=== PATIENT | female | born 1995 | race Caucasian/White ===

== ENCOUNTER 2018-08-21 22:44 | Emergency (ER) | payer OTHER ==
[~2018-08-21] VITALS: Ht 160 cm; Wt 61.4 kg
[2018-08-21 22:47] VITALS: Ht 160 cm; Wt 61.4 kg
[2018-08-21] MEDS ORDERED: ACETAMINOPHEN 500 MG TAB PO STA (23:05)
--- NOTE | 2018-08-21 23:10 | ERD ---
ER Documentation Chief Complaint Chief Complaint vomiting/abdominal pain x 2 days, 8 weeks . denies vb HPI This is a 23-year-old female who presents here in emergency department with complaints of vomiting and pelvic pain with cramping for about 2 days. Stated that she vomited multiple times with nonbilious nonbloody emesis today. Denies vaginal bleeding. LMP: 06/26/2018. NATHAN: 04/02/2019. A0. Denies headache, head injury, loss of consciousness, dizziness, neck pain, neck stiffness, throat pain, difficulty swallowing, difficulty breathing lying flat, shoulder pain, chest pain, back pain, constipation, diarrhea, urinary symptoms, loss of bowel and bladder control, trauma, injury, falls, difficulty walking due to pain, numbness or tingling sensation, calf pain, recent travel, recent major surgery in the last 3 weeks, calf pain, recent long travel, recent exposure to any illness, recent antibiotic use in the last 3 months, fever, chills, seizures. Past medical history: Denies. Surgical history: Denies. Social: Denies smoking, use of alcoholic beverages, use of illegal drugs. ROS All systems reviewed and are negative except as per history of present illness. Medications Home Meds Active Scripts Vit No.124/Iron/FA ( Vitamin Tablet) 1 Each Tablet, 1 EACH PO DAILY, #30 TAB Prov:PASILABAN,KLAR F 08/22/18 Metoclopramide* (Reglan*) 10 Mg Tablet, 10 MG PO Q6 PRN for NAUSEA AND/OR VOMITING, #20 TAB Prov:PASILABAN,KLAR F 08/22/18 Acetaminophen* (Tylophen*) 500 Mg Capsule, 1 CAP PO Q6H PRN for PAIN AND OR ELEVATED TEMP, #20 CAP Prov:PASILABAN,KLAR F 08/22/18 Cephalexin* (Keflex*) 500 Mg Capsule, 500 MG PO TID for 7 Days, CAP Prov:PASILABAN,KLAR F 08/22/18 Allergies Allergies: Coded Allergies: No Known Drug Allergies (Verified Allergy, Unknown, 08/21/18) PMhx/Soc Medical and Surgical Hx: pt denies Surgical Hx History of Surgery: No Anesthesia Reaction: No Hx Neurological Disorder: No Hx Respiratory Disorders: No Hx Cardiac Disorders: No Hx Psychiatric Problems: No Hx Miscellaneous Medical Probl: Yes (ANEMIA, HYPOTHYROIDISM) Hx Alcohol Use: No Hx Substance Use: No Hx Tobacco Use: No Smoking Status: Never smoker Physical Exam Vitals Physical Exam Const: No acute distress Head: Atraumatic Eyes: Normal Conjunctiva ENT: Normal External Ears, Nose and Mouth. Neck: Full range of motion. No meningismus. Resp: Clear to auscultation bilaterally Cardio: Regular rate and rhythm, no murmurs Abd: Soft, non tender, non distended. Normal bowel sounds. Negative Varghese sign. No CVA tenderness. Skin: No petechiae or rashes. No skin tenting. No signs of severe dehydration. Back: No midline or flank tenderness Ext: No cyanosis, or edema Neur: Awake and alert. No neurological deficit. Psych: Normal Mood and Affect Results 24 hrs Laboratory Tests Test 08/21/18 23:30 08/22/18 01:31 White Blood Count 12.2 10^3/ul Red Blood Count 4.09 10^6/ul Hemoglobin 9.8 g/dl Hematocrit 31.3 % Mean Corpuscular Volume 76.5 fl Mean Corpuscular Hemoglobin 24.0 pg Mean Corpuscular Hemoglobin Concent 31.3 g/dl Red Cell Distribution Width 16.2 % Platelet Count 331 10^3/UL Mean Platelet Volume 8.8 fl Immature Granulocytes % 0.300 % Neutrophils % 85.5 % Lymphocytes % 9.4 % Monocytes % 4.4 % Eosinophils % 0.2 % Basophils % 0.2 % Nucleated Red Blood Cells % 0.0 /100WBC Immature Granulocytes # 0.040 10^3/ul Neutrophils # 10.4 10^3/ul Lymphocytes # 1.1 10^3/ul Monocytes # 0.5 10^3/ul Eosinophils # 0.0 10^3/ul Basophils # 0.0 10^3/ul Nucleated Red Blood Cells # 0.0 10^3/ul Sodium Level 139 mmol/L Potassium Level 3.8 mmol/L Chloride Level 102 mmol/L Carbon Dioxide Level 21 mmol/L Anion Gap 16 Blood Urea Nitrogen 5 mg/dl Creatinine 0.41 mg/dl Est Glomerular Filtrat Rate mL/min > 60 mL/min Glucose Level 102 mg/dl Calcium Level 9.8 mg/dl Total Bilirubin 0.4 mg/dl Direct Bilirubin 0.00 mg/dl Indirect Bilirubin 0.4 mg/dl Aspartate Amino Transf (AST/SGOT) 23 IU/L Alanine Aminotransferase (ALT/SGPT) 16 IU/L Alkaline Phosphatase 51 IU/L Total Protein 7.5 g/dl Albumin 4.5 g/dl Globulin 3.00 g/dl Albumin/Globulin Ratio 1.50 Amylase Level 89 U/L Lipase 34 U/L Beta HCG, Quantitative 27373.0 mIU/ml Urine Color YELLOW Urine Clarity CLEAR Urine pH 6.0 Urine Specific [place] 1.016 Urine Ketones 2+ mg/dL Urine Nitrite NEGATIVE mg/dL Urine Bilirubin NEGATIVE mg/dL Urine Urobilinogen 1+ mg/dL Urine Leukocyte Esterase 1+ Jonathan/ul Urine Microscopic RBC 2 /HPF Urine Microscopic WBC 11 /HPF Urine Squamous Epithelial Cells FEW /HPF Urine Hemoglobin NEGATIVE mg/dL Urine Glucose NEGATIVE mg/dL Urine Total Protein NEGATIVE mg/dl Current Medications Medications Dose Sig/Brisa Start Time Status Last (Trade) Ordered Route PRN Stop Time Admin Dose Reason Admin 500 mg ONCE STAT 08/21/18 DC 08/21/18 Acetaminophen PO 23:05 23:22 (Tylenol 08/21/18 Tab) 23:09 Sodium 1,000 ml @ Q1H ONCE 08/21/18 DC 08/21/18 Chloride 1,000 mls/hr IV 23:30 23:32 08/22/18 00:29 10 mg ONCE ONCE 08/21/18 DC 08/21/18 Metoclopramid IV 23:30 23:32 e HCl 08/21/18 (Reglan) 23:31 Procedures/MDM Diagnostic tests: Urinalysis: UTI. Culture urine: Sent. Type and Rh: A Positive. Beta-hCG quantitative: 26344.0 Blood works: Blood works. OB ultrasound: 1. Single live intrauterine gestation of approximately 8 weeks 0 days. 2. No subchorionic hemorrhage. 3. Ovaries not visualized. Treatment: Saline lock. Normal saline IV bolus. Reglan IV. Re-evaluation: No episode of emesis here in the emergency department. Denies abdominal pain. No abdominal tenderness. No CVA tenderness. Denies vaginal bleeding. Differential diagnosis I have low suspicion for ectopic , sepsis, ruptured ectopic , hemorrhage, severe anemia, severe dehydration, cholecystitis, pancreatitis. Final diagnosis: Urinary tract infection in . Prescription: Keflex. Tylenol. vitamins. Reglan. Follow-up with OB in the next 24-48 hours. Come back here in the emergency department for any new symptoms or any worsening symptoms. All questions and concerns were answered. Patient and family members verbalized understanding and agreed with plan of care. Hemodynamically stable on discharge. Departure Diagnosis: Primary Impression: Vaginal bleeding during Additional Impression: UTI (urinary tract infection) during Condition: Stable Additional Instructions: Follow-up with OB in the next 24-48 hours. Come back here in the emergency department for any new symptoms or any worsening symptoms. PATRIZIA ALVARENGA Aug 21, 2018 23:10
[2018-08-21] MEDS ORDERED: SOD CHLORIDE 0.9% 1,000 ML IV ONE (23:30)
[2018-08-21] MEDS ORDERED: METOCLOPRAMIDE 10 MG INJ IV ONE (23:30)
[2018-08-22] MEDS ORDERED: ACET500C5 PO (03:02)
[2018-08-22] MEDS ORDERED: CEPH-443 PO (03:02)
[2018-08-22] MEDS ORDERED: METO10TA92 PO (03:03)
[2018-08-22] MEDS ORDERED: PREN-93 PO (03:03)
[2018-08-22 03:22] VITALS: BP 122/76; PULSE 73; RESP 20
== END 2018-08-22 03:24 | disposition home or self-care (01) ==
LOC: FTE 22:44
DX: O20.9 Hemorrhage in early pregnancy, unspecified (principal); O23.41 Unspecified infection of urinary tract in pregnancy, first trimester; O99.281 Endocrine, nutritional and metabolic diseases complicating pregnancy, first trimester; E03.9 Hypothyroidism, unspecified; R10.2 Pelvic and perineal pain; Z3A.08 8 weeks gestation of pregnancy
CPT/HCPCS: 76801; 80053; 81001; 82150; 83690; 84702; 85025; 86850; 86900; 86901; 87086; J2765; J7030; Z7610; 96374

== ENCOUNTER 2019-02-10 20:50 | Outpatient (CLI) | payer OTHER ==
[~2019-02-10] VITALS: Ht 160 cm; Wt 70.2 kg
[~2019-02-10 20:50] MED LIST: ACET500C5 PO; CEPH-443 PO; METO10TA92 PO; PREN-93 PO
[2019-02-10 21:15] VITALS: Ht 160 cm; Wt 70.2 kg
[2019-02-10 21:16] VITALS: BP 116/75; PULSE 82; RESP 17
--- NOTE | 2019-02-11 04:40 | PN ---
Triage Information Date/Time Late entry note for consultation for February 10, 2019 Reason for visit: Uterine contractions Weeks of Gestation 33 weeks and 6 days /Para 1 para 0 Diabetes: none Hypertention: none Additional information 23-year-old 1 para 0 with IUP at 33 weeks and 6 days presented with complaint of cramping as well as right leg pain shooting down to her legs since yesterday increase the symptoms. Reports symptoms worsen upon standing and walking. She denies any decreased movements or vaginal bleeding, or leaking of fluid. Objective Vital Signs Date Temp Pulse Resp B/P (MAP) Pulse Ox O2 O2 Flow FiO2 Time Delivery Rate 02/10/19 99.0 82 17 116/75 Room Air 21:16 (89) Heart Rate: 130's Heart Rate Comments heart tones category 1 tracing Contractions: >10 Minutes Apart Exam Appearance: Alert and oriented x4 does not appear to be in any acute distress Abdomen: Soft, gravid, fundal height consider gestational age NST: Category 1 Occasional rate contraction noted on the monitor BPP: 04/05 NAINA: 14.3 UA: 3+ leukocyte esterase consistent with UTI VS - Last 72 Hours, by Label Date Temp Pulse Resp B/P (MAP) Pulse Ox O2 O2 Flow FiO2 Time Delivery Rate 02/10/19 99.0 82 17 116/75 Room Air 21:16 (89) Laboratory Tests Test 02/10/19 21:15 02/10/19 22:15 Urine Color YELLOW Urine Clarity CLOUDY A Urine pH 6.0 Urine Specific [place] 1.018 Urine Ketones NEGATIVE Urine Nitrite NEGATIVE Urine Bilirubin NEGATIVE Urine Urobilinogen 1+ H Urine Leukocyte Esterase 3+ H Urine Microscopic RBC 5 Urine Microscopic WBC 134 H Urine Squamous Epithelial Cells MODERATE Urine Bacteria FEW A Urine Hemoglobin NEGATIVE Urine Glucose NEGATIVE Urine Total Protein NEGATIVE White Blood Count 7.1 # Red Blood Count 3.52 L Hemoglobin 9.3 L Hematocrit 29.3 L Mean Corpuscular Volume 83.2 Mean Corpuscular Hemoglobin 26.4 L Mean Corpuscular Hemoglobin Concent 31.7 L Red Cell Distribution Width 14.4 Platelet Count 250 # Mean Platelet Volume 9.8 Immature Granulocytes % 0.300 Neutrophils % 56.6 Lymphocytes % 33.6 Monocytes % 8.5 Eosinophils % 0.7 Basophils % 0.3 Nucleated Red Blood Cells % 0.0 Immature Granulocytes # 0.020 Neutrophils # 4.0 Lymphocytes # 2.4 Monocytes # 0.6 Eosinophils # 0.1 Basophils # 0.0 Nucleated Red Blood Cells # 0.0 Results/Medications Result Diagram: 02/10/19 2215 Results 24 hrs Laboratory Tests Test 02/10/19 21:15 02/10/19 22:15 Urine Color YELLOW Urine Clarity CLOUDY A Urine pH 6.0 Urine Specific [place] 1.018 Urine Ketones NEGATIVE Urine Nitrite NEGATIVE Urine Bilirubin NEGATIVE Urine Urobilinogen 1+ H Urine Leukocyte Esterase 3+ H Urine Microscopic RBC 5 Urine Microscopic WBC 134 H Urine Squamous Epithelial Cells MODERATE Urine Bacteria FEW A Urine Hemoglobin NEGATIVE Urine Glucose NEGATIVE Urine Total Protein NEGATIVE White Blood Count 7.1 # Red Blood Count 3.52 L Hemoglobin 9.3 L Hematocrit 29.3 L Mean Corpuscular Volume 83.2 Mean Corpuscular Hemoglobin 26.4 L Mean Corpuscular Hemoglobin Concent 31.7 L Red Cell Distribution Width 14.4 Platelet Count 250 # Mean Platelet Volume 9.8 Immature Granulocytes % 0.300 Neutrophils % 56.6 Lymphocytes % 33.6 Monocytes % 8.5 Eosinophils % 0.7 Basophils % 0.3 Nucleated Red Blood Cells % 0.0 Immature Granulocytes # 0.020 Neutrophils # 4.0 Lymphocytes # 2.4 Monocytes # 0.6 Eosinophils # 0.1 Basophils # 0.0 Nucleated Red Blood Cells # 0.0 Imaging Results PROCEDURE: US Lower extremity Venous right. CLINICAL INDICATION: Right leg pain TECHNIQUE: Multiple sonographic images of the right lower extremity deep venous system was obtained utilizing grayscale, color-flow, compressive sonography and doppler imaging with augmentation. The images were reviewed on a PACS workstation. COMPARISON: None. FINDINGS: There is normal compressibility and flow within right common femoral, femoral, popliteal, posterior tibial and peroneal veins. IMPRESSION: No sonographic evidence for right lower extremity deep venous thrombosis. RPTAT: HJES PROCEDURE: US OB. CLINICAL INDICATION: Pelvic pain TECHNIQUE: Multiple sonographic images of the pelvis were obtained. The images were reviewed on a PACS workstation. COMPARISON: No prior studies are available for comparison. FINDINGS: The cervix is closed with a length of 3.2 cm. There is a single viable intrauterine gestation. Cardiac activity is present with 137 beats per minute. There is a cephalic presentation. Measurements were made in order to determine age. The results are as fo llows: BPD = 8.43 cm HC = 31.30 cm AC = 29.86 cm FL = 5.96 cm. Estimated gestational age of approximately 33 weeks 3 days. The estimated date of delivery is 03/28/2019. The EFW = 2137 g 55.2% . The placenta is fundal grade II. There is no evidence for an abruption or placenta previa. There is a normal amount of amniotic fluid with an NAINA = 14.3 cm. IMPRESSION: Single viable intrauterine gestation of approximately 33 weeks 3 days. The estimated date of delivery is 03/28/2019 No placenta previa or abruption . .Dallas Do MD, Date Time Electronically viewed and signed by .Dallas Do MD, on 01/27 PROCEDURE: US OB. CLINICAL INDICATION: Abdominal pain TECHNIQUE: Multiple sonographic images of the pelvis were obtained. The images were reviewed on a PACS workstation. COMPARISON: No prior studies are available for comparison. FINDINGS: There is a single live intrauterine . cardiac activity is identified at a rate of 150 beats per minute. presentation is cephalic. Placenta is fundal grade II. There is no evidence of placenta previa or abruption. Cervix is closed with a length of 3.2 cm. Biophysical profile score is as follows: Breathing 2 Movements 2 Tone 2 Fluid volume 2 Amniotic fluid index = 14.3 cm Total biophysical profile score = 8/8 IMPRESSION: Biophysical profile score = 8/8 No placenta previa or abruption RPTAT: Disposition: Discharge Assessment/Plan IUP at 33 weeks and 6 days No evidence of labor Right leg pain shooting down from low back area Pain musculoskeletal Discussed with the patient regarding rest warm compress and Tylenol as needed pain testing reassuring No evidence of labor or PPROM Patient discharged home in stable condition with instruction to have a follow-up in 2 days with primary OB office or sooner as needed Patient verbalized understanding. UA consistent with UTI, treatment for UTI with Keflex 500 mg p.o. 4 times daily for 7 days given Return to triage as needed any other symptoms. LEX BROWNE MD Feb 11, 2019 04:40
--- NOTE | 2019-02-11 04:46 | TRIAGE ---
OB Triage Datetime Report Generated by CPN: 02/11/2019 04:45 Datetime: 02/11/2019 00:27 Labor Evaluation Frequency: X1 Monitor Mode: External Duration (sec)2399: 70 Pattern: Normal: <= 5 Contractions in 10 Minutes Resting Tone [place]: Relaxed Heart Rate FHR Baseline Rate: 135 Monitor Mode: External US Variability: Moderate 6-25 bpm Accelerations: 15X15 Decelerations: None Category: Category I Datetime: 02/10/2019 23:30 Stage of : OB Triage Labor Evaluation Frequency: X1 Monitor Mode: External Duration (sec)2399: 60 Quality: Mild Pattern: Normal: <= 5 Contractions in 10 Minutes Resting Tone [place]: Relaxed Heart Rate FHR Baseline Rate: 135 Monitor Mode: External US Variability: Moderate 6-25 bpm Accelerations: 15X15 Decelerations: None Category: Category I Datetime: 02/10/2019 22:26 Stage of : OB Triage Labor Evaluation Frequency: X0 Monitor Mode: External Duration (sec)2399: X0 Pattern: Normal: <= 5 Contractions in 10 Minutes Resting Tone [place]: Relaxed Heart Rate FHR Baseline Rate: 135 Monitor Mode: External US Variability: Moderate 6-25 bpm Accelerations: 15X15 Decelerations: None Category: Category I Datetime: 02/10/2019 22:24 Pain Assessment Pain Scale: 3 Pain Presence: Constant Pain Type: Cramping; Ache Pain Location: Abdomen; Other (Annotations: RIGHT LEG PAIN) Pain Assessment Comments: PT RESTING IN BED, REPORTED FEELING LESS PAIN AT THIS TIME. Datetime: 02/10/2019 21:45 Stage of : OB Triage Labor Evaluation Frequency: X1 Monitor Mode: External Duration (sec)2399: 60 Pattern: Normal: <= 5 Contractions in 10 Minutes Resting Tone [place]: Relaxed Contraction Comments: MILD IRRITABILITY NOTED Heart Rate FHR Baseline Rate: 145 Monitor Mode: External US Variability: Moderate 6-25 bpm Accelerations: 15X15 Decelerations: None Category: Category I Datetime: 02/10/2019 21:30 Stage of : OB Triage Maternal Assessment Level of Consciousness: Keenly Alert, Responsive DTR's/Clonus: DTRs 2+; No Clonus Headache: Denies Blurred Vision: No Respiratory Effort: Unlabored; Regular Rhythm; Equal Expansion Breath Sounds, Left: Clear and Equal Breath Sounds, Right: Clear and Equal Nausea/Vomiting: Denies RUQ Epigastric Pain: Denies Lower Extremities Edema: None Degree: None Upper Extremities Edema: None Degree: None Facial Edema: None Temperature Route: Oral Fall Risk Assessment History of Falling: (0) No Secondary Diagnosis: (0) No Ambulatory Aid: (0) Bedrest/Nurse Assist IV Therapy: (0) No Gait: (0) Normal/Bedrest/Immobile Mental Status: (0) Oriented to Own Ability Fall Score: 0 Fall Risk Score Definition: No Risk: No action required Pain Assessment Pain Scale: 5 Pain Presence: Constant Pain Type: Cramping; Ache Pain Location: Abdomen; Other Pain Goal: 0 Pain Relief Measures: Comfort Measures Pain Assessment Comments: PT ALSO REPORTED 8/10 RIGHT LEG PAIN WHEN STANDING AND WALKING Datetime: 02/10/2019 21:26 Time of Arrival: 02/10/2019 20:45 EGA: 32.5 Arrived By: Wheelchair Arrived From: Home Chief Complaint: CRAMPING RIGHT LEG PAIN Movement: Present Rupture of Membranes: Denies Vaginal Bleeding: None Vaginal Discharge: Denies Recent Sexual Intercouse: Denies Abdominal Trauma: Not Applicable Patient Complaints: Cramping; Other Time Provider Notified: 02/10/2019 21:45 Provider Notified: DR. KIM Initial Plan: EFM, CALL OB Datetime: 02/10/2019 21:11 Vaginal Exam Membrane Status: Intact Datetime: 02/10/2019 20:59 Monitor Mode: External Contraction Comments: APPLIED Monitor Mode: External US Comments: APPLIED
== END 2019-02-11 00:50 | disposition home or self-care (01) ==
LOC: L-D 20:50 → OBT 20:50
PROVIDERS: ATTEND Obstetrics & Gynecology
DX: O62.9 Abnormality of forces of labor, unspecified (principal); Z3A.33 33 weeks gestation of pregnancy
CPT/HCPCS: 76815; 76817; 76818; 81001; 85025; 93971; Z7500; G0463

== ENCOUNTER 2019-02-25 12:54 | Outpatient (CLI) | payer OTHER ==
[~2019-02-25] VITALS: Ht 160 cm; Wt 71.5 kg
[~2019-02-25 12:54] MED LIST changes: -ACET500C5 PO; -CEPH-443 PO; -METO10TA92 PO
[2019-02-25 13:30] VITALS: Ht 160 cm; Wt 71.5 kg
--- NOTE | 2019-02-25 14:59 | PN ---
Triage Information Date/Time Reason for visit: Uterine contractions Weeks of Gestation 34+ /Para n/a Diabetes: none Hypertention: none Objective Heart Rate: 140's Contractions: None Results/Medications Results 24 hrs Laboratory Tests Test 02/25/19 13:21 Urine Color KIRAN Urine Clarity TURBID A Urine pH 6.0 Urine Specific [place] 1.028 Urine Ketones TRACE A Urine Nitrite NEGATIVE Urine Bilirubin NEGATIVE Urine Urobilinogen NEGATIVE Urine Leukocyte Esterase 2+ H Urine Microscopic RBC 57 H Urine Microscopic WBC > 182 H Urine Squamous Epithelial Cells MANY A Urine Transitional Epithelial Cells FEW A Urine Bacteria FEW A Urine Mucus FEW A Urine Hemoglobin 1+ H Urine Glucose NEGATIVE Urine Total Protein 2+ H Membranes Rupture NEGATIVE Disposition: Discharge Assessment/Plan CX closed Rom plus neg BPP 06/07 Receiving Antibiotics for UTI --->Discharge with precautions --->Questions answered --->Follow up with her provider NITIN KELLY M.D. Feb 25, 2019 14:59
--- NOTE | 2019-02-25 15:03 | TRIAGE ---
OB Triage Datetime Report Generated by CPN: 02/25/2019 15:03 Datetime: 02/25/2019 14:54 Stage of : OB Triage Maternal Assessment Level of Consciousness: Keenly Alert, Responsive DTR's/Clonus: DTRs 1+ Headache: Denies Blurred Vision: No Respiratory Effort: Unlabored Breath Sounds, Left: Clear and Equal Breath Sounds, Right: Clear and Equal Nausea/Vomiting: Denies RUQ Epigastric Pain: Denies Facial Edema: None Labor Evaluation Frequency: NONE Monitor Mode: External Resting Tone [place]: Relaxed Heart Rate FHR Baseline Rate: 135 Monitor Mode: External US Variability: Moderate 6-25 bpm Accelerations: 15X15 Decelerations: None Category: Category I Pain Assessment Pain Scale: 0 Pain Presence: None/Denies Pain Type: N/A Pain Goal: 3 Membrane Status: Intact Datetime: 02/25/2019 13:57 Stage of : OB Triage Maternal Assessment Level of Consciousness: Keenly Alert, Responsive DTR's/Clonus: DTRs 1+ Headache: Denies Blurred Vision: No Respiratory Effort: Unlabored Breath Sounds, Left: Clear and Equal Breath Sounds, Right: Clear and Equal Nausea/Vomiting: Denies RUQ Epigastric Pain: Denies Facial Edema: None Labor Evaluation Frequency: INRREGULAR Monitor Mode: External Duration (sec)2399: 40-70 Quality: Mild Pattern: Normal: <= 5 Contractions in 10 Minutes Resting Tone [place]: Relaxed Heart Rate FHR Baseline Rate: 140 Variability: Moderate 6-25 bpm Accelerations: 15X15 Decelerations: None Category: Category I Pain Assessment Pain Scale: 0 Pain Presence: None/Denies Pain Type: N/A Pain Goal: 3 Datetime: 02/25/2019 13:20 Vaginal Exam Dilatation (cms): 1.0 Effacement (%): 40 Station: -3 Exam By: MARISOL SHEN Vaginal Bleeding: None Cervix, Consistency: Soft Cervix, Position: Midposition Presentation 'A': Cephalic Datetime: 02/25/2019 13:18 Maternal Assessment Level of Consciousness: Keenly Alert, Responsive DTR's/Clonus: DTRs 1+ Headache: Denies Blurred Vision: No Nausea/Vomiting: Denies RUQ Epigastric Pain: Denies Facial Edema: None Labor Evaluation Frequency: 70 Monitor Mode: External Quality: Mild Pattern: Normal: <= 5 Contractions in 10 Minutes Resting Tone [place]: Relaxed Heart Rate FHR Baseline Rate: 140 Monitor Mode: External US Variability: Moderate 6-25 bpm Accelerations: 15X15 Decelerations: None Category: Category I Pain Assessment Pain Scale: 0 Pain Presence: None/Denies Pain Type: N/A Pain Goal: 3 Membrane Status: Intact Datetime: 02/25/2019 13:10 Assessment Type: Triage Maternal Assessment Level of Consciousness: Keenly Alert, Responsive DTR's/Clonus: DTRs 2+; No Clonus Headache: Denies Blurred Vision: No Respiratory Effort: Unlabored; Regular Rhythm; Equal Expansion Breath Sounds, Left: Clear and Equal Breath Sounds, Right: Clear and Equal Nausea/Vomiting: Denies RUQ Epigastric Pain: Denies Lower Extremities Edema: None Degree: None Upper Extremities Edema: None Degree: None Facial Edema: None Fall Risk Assessment History of Falling: (0) No Secondary Diagnosis: (0) No Ambulatory Aid: (0) Bedrest/Nurse Assist IV Therapy: (0) No Gait: (0) Normal/Bedrest/Immobile Mental Status: (0) Oriented to Own Ability Fall Score: 0 Fall Risk Score Definition: No Risk: No action required Datetime: 02/25/2019 12:50 Time of Arrival: 02/25/2019 12:50 EGA: 34.6 Arrived By: Ambulatory Arrived From: Home Chief Complaint: PT CAME IN C/O LEAKING WHITE/GREEN FLUD SINCE AM X 2. DENIES ANY MORE LEAKING AND STATES + MOVEMENT Movement: Present Contractions: Denies/Absent Rupture of Membranes: Denies Vaginal Discharge: Denies Recent Sexual Intercouse: Denies Abdominal Trauma: Not Applicable Additional Patient Complaints: NONE Time Provider Notified: 02/25/2019 13:20 Provider Notified: DELSHAD Initial Plan: NST, ROM PLUS, BPP AND NITRIZINE Datetime: 02/10/2019 21:30 Fall Score: 0 Fall Risk Score Definition: No Risk: No action required Datetime: 02/10/2019 21:26 EGA: 32.5
== END 2019-02-25 14:57 | disposition home or self-care (01) ==
LOC: L-D 12:54 → OBT 12:54
PROVIDERS: ATTEND Obstetrics & Gynecology
DX: O62.9 Abnormality of forces of labor, unspecified (principal); Z3A.34 34 weeks gestation of pregnancy
CPT/HCPCS: 76818; 81001; 84112; Z7500; G0463

== ENCOUNTER 2019-03-12 12:49 | Outpatient (CLI) | payer OTHER ==
[~2019-03-12] VITALS: Ht 160 cm; Wt 73.1 kg
[2019-03-12 13:45] VITALS: BP 120/79; PULSE 76; RESP 18; Ht 160 cm; Wt 73.1 kg
[2019-03-13] MEDS ORDERED: CALC500T11 PO (19:32)
--- NOTE | 2019-03-13 21:58 | PN ---
Triage Information Date/Time Date of visit 03/12/2019 Reason for visit: R/O preeclampsia Weeks of Gestation 37 weeks /Para Diabetes: none Hypertention: none Objective Vital Signs Date Temp Pulse Resp B/P (MAP) Pulse Ox O2 O2 Flow FiO2 Time Delivery Rate 03/12/19 97.7 76 18 120/79 98 Room Air 13:45 (93) Heart Rate: 120's Heart Rate Comments Tracing Reactive Results/Medications Result Diagram: 03/12/19 1414 03/12/19 1414 Imaging Results BPP 04/05 Disposition: Discharge Assessment/Plan No sign of preeclampsia Follow up on 03/13/2019. CAS KIM MD Mar 13, 2019 21:58
== END 2019-03-12 15:45 | disposition home or self-care (01) ==
LOC: OBT 12:49 → L-D 12:50 → OBT 15:45
PROVIDERS: ATTEND Obstetrics & Gynecology
DX: O14.93 Unspecified pre-eclampsia, third trimester (principal); Z3A.37 37 weeks gestation of pregnancy
CPT/HCPCS: 76815; 76818; 80053; 81001; 84560; 85025; 85384; 85610; 85730; Z7500; G0463

== ENCOUNTER 2019-03-13 12:20 | Inpatient (IN) | payer OTHER ==
[~2019-03-13] VITALS: Ht 160 cm; Wt 73.8 kg
[2019-03-13] MEDS ORDERED: LACTATED RINGER'S 1,000 ML IV ONE (13:00)
--- NOTE | 2019-03-13 13:44 | TRIAGE ---
OB Triage Datetime Report Generated by CPN: 03/13/2019 13:44 Datetime: 03/13/2019 13:35 Maternal Assessment Level of Consciousness: Keenly Alert, Responsive DTR's/Clonus: DTRs 1+ Headache: Denies Blurred Vision: No Respiratory Effort: Unlabored Breath Sounds, Left: Clear and Equal Breath Sounds, Right: Clear and Equal Nausea/Vomiting: Denies RUQ Epigastric Pain: Denies Facial Edema: None Labor Evaluation Frequency: X3 Monitor Mode: External Duration (sec)2399: 50-80 Quality: Mild Pattern: Normal: <= 5 Contractions in 10 Minutes Resting Tone [place]: Relaxed Heart Rate FHR Baseline Rate: 130 Monitor Mode: External US Variability: Moderate 6-25 bpm Accelerations: 15X15 Decelerations: None Category: Category I Pain Assessment Pain Scale: 0 Pain Presence: None/Denies Pain Type: N/A Pain Goal: 3 Vaginal Exam Membrane Status: Intact Datetime: 03/13/2019 12:46 Maternal Assessment Level of Consciousness: Keenly Alert, Responsive DTR's/Clonus: DTRs 1+ Headache: Denies Blurred Vision: No Respiratory Effort: Unlabored Breath Sounds, Left: Clear and Equal Breath Sounds, Right: Clear and Equal Nausea/Vomiting: Denies RUQ Epigastric Pain: Denies Facial Edema: None Labor Evaluation Frequency: X1 Monitor Mode: External Duration (sec)2399: 50 Quality: Mild Pattern: Normal: <= 5 Contractions in 10 Minutes Resting Tone [place]: Relaxed Heart Rate FHR Baseline Rate: 145 Monitor Mode: External US Variability: Moderate 6-25 bpm Accelerations: 15X15 Decelerations: None Category: Category I Pain Assessment Pain Scale: 0 Pain Presence: None/Denies Pain Type: N/A Pain Goal: 3 Vaginal Exam Membrane Status: Intact Datetime: 03/13/2019 12:36 Assessment Type: Triage Maternal Assessment Level of Consciousness: Keenly Alert, Responsive DTR's/Clonus: DTRs 2+; No Clonus Headache: Denies Blurred Vision: No Respiratory Effort: Unlabored; Regular Rhythm; Equal Expansion Breath Sounds, Left: Clear and Equal Breath Sounds, Right: Clear and Equal Nausea/Vomiting: Denies RUQ Epigastric Pain: Denies Lower Extremities Edema: None Degree: None Upper Extremities Edema: None Degree: None Facial Edema: None Fall Risk Assessment History of Falling: (0) No Secondary Diagnosis: (0) No Ambulatory Aid: (0) Bedrest/Nurse Assist IV Therapy: (0) No Gait: (0) Normal/Bedrest/Immobile Mental Status: (0) Oriented to Own Ability Fall Score: 0 Fall Risk Score Definition: No Risk: No action required Datetime: 03/13/2019 12:16 Time of Arrival: 03/13/2019 12:16 EGA: 37.1 Arrived By: Ambulatory Arrived From: Home Chief Complaint: LOW NAINA NST BPP Movement: Present Contractions: Denies/Absent Rupture of Membranes: Denies Vaginal Discharge: Denies Recent Sexual Intercouse: Denies Abdominal Trauma: Not Applicable Additional Patient Complaints: NONE Time Provider Notified: 03/13/2019 12:53 Provider Notified: DELAD Initial Plan: NST AND BPP Datetime: 03/12/2019 14:02 Stage of : OB Triage Datetime: 03/12/2019 13:50 Time of Arrival: 03/12/2019 13:50 EGA: 37.0 Arrived By: Wheelchair Arrived From: Dr. Fernandez Chief Complaint: sent from clinic for excessive wt gain, gained 4lbs in 1 wk Movement: Present Contractions: Irregular Rupture of Membranes: Denies Vaginal Bleeding: None Vaginal Discharge: Denies Recent Sexual Intercouse: Denies Abdominal Trauma: Not Applicable Patient Complaints: Other Time Provider Notified: 03/12/2019 14:00 Provider Notified: Cesar Initial Plan: efm/ NST/ BPP/ EFW/ PIH panel Datetime: 03/12/2019 13:42 Stage of : OB Triage Maternal Assessment Level of Consciousness: Keenly Alert, Responsive DTR's/Clonus: DTRs 2+; No Clonus Headache: Denies Blurred Vision: No Respiratory Effort: Unlabored; Regular Rhythm; Equal Expansion Breath Sounds, Left: Clear and Equal Breath Sounds, Right: Clear and Equal Nausea/Vomiting: Denies RUQ Epigastric Pain: Denies Lower Extremities Edema: Bilateral Lower Extremities Degree: Pitting Upper Extremities Edema: None Facial Edema: None Temperature Route: Oral Fall Risk Assessment History of Falling: (0) No Secondary Diagnosis: (0) No Ambulatory Aid: (0) Bedrest/Nurse Assist IV Therapy: (0) No Gait: (0) Normal/Bedrest/Immobile Mental Status: (0) Oriented to Own Ability Fall Score: 0 Fall Risk Score Definition: No Risk: No action required Monitor Mode: External Heart Rate FHR Baseline Rate: 130 Monitor Mode: External US Pain Assessment Pain Scale: 0 Datetime: 02/25/2019 13:10 Fall Score: 0 Fall Risk Score Definition: No Risk: No action required Datetime: 02/25/2019 12:50 EGA: 34.6 Datetime: 02/10/2019 21:30 Fall Score: 0 Fall Risk Score Definition: No Risk: No action required Datetime: 02/10/2019 21:26 EGA: 32.5
[2019-03-13 15:31] VITALS: Ht 160 cm; Wt 73.8 kg
[2019-03-13] MEDS: LACTATED RINGER'S 1,000 ML IV SCH ×2 (15:35→19:36)
[2019-03-13] MEDS ORDERED: CALC500T11 PO (19:32)
--- NOTE | 2019-03-13 21:53 | HP ---
Date/Time of Note Date/Time of Note DATE: 03/13/19 TIME: 21:49 OB - History Hx of Present Chief Complaint: follow up antepartum testing Estimated Due Date: Apr 02, 2019 : 1 Para: 0 Spontaneous : 0 Therapeutic : 0 Care: Good Care Ultrasounds: Normal mid trimester US Obstetrical Complications: None Medical Complications: None Past Family/Social History * Past Medical, Surgical, Family and Obstetric Histories reviewed from chart. GBS Status: Negative OB Admission Exam Physical Exam HEENT: WNL Heart: Rhythm Normal Lungs: Clear, Equal Abdomen: WNL Extremities: Normal Reflexes: Normal Cervical Dilatation: None Heart Rate: 120's Accelerations: Accelerations Present Decelerations: No Decelerations Varibility: Moderate Last 72 hours Lab Results CBC & BMP 03/13/19 14:30 OB Assessment/Plan Reason for admission: other Other Assessment: oligohydramnios gestational hypertension Plan: Induction Induction Method: per Misoprostol Protocol CAS KIM MD Mar 13, 2019 21:53
[2019-03-13] MEDS ORDERED: LACTATED RINGER'S 1,000 ML IV PRN (22:31)
[2019-03-13] MEDS ORDERED: BUTORPHANOL 2 MG INJ IV PRN (23:00)
[2019-03-13] MEDS ORDERED: METHYLERGONOVINE 0.2 MG INJ IM PRN (23:00)
[2019-03-13] MEDS ORDERED: MISOPROSTOL 200 MCG TAB PR PRN (23:00)
[2019-03-13] MEDS ORDERED: OXYTOCIN 30 UNITS/LR 500 ML IV SCH ×2 (23:00)
[2019-03-13] MEDS ORDERED: CARBOPROST 250 MCG INJ IM PRN (23:00)
[2019-03-13] MEDS ORDERED: IBUPROFEN 600 MG TAB PO PRN (23:00)
[2019-03-13] MEDS ORDERED: OXYTOCIN 30 UNITS/LR 500 ML IV PRN (23:00)
[2019-03-13] MEDS ORDERED: LIDOCAINE 1% (MPF) 30 ML INJ INJ PRN (23:00)
[2019-03-13] MEDS: MISOPROSTOL 50 MCG CAPSULE PO SCH (23:56)
[2019-03-14] MEDS ORDERED: AMPICILLIN 2 GM/NS (PMX) 100 ML IV ONE (00:30)
[2019-03-14] MEDS ORDERED: AMPICILLIN 2 GM/NS (PMX) 100 ML ONE (00:34)
[2019-03-14] MEDS: MISOPROSTOL 50 MCG CAPSULE PO SCH (04:00)
[2019-03-14] MEDS: LACTATED RINGER'S 1,000 ML IV SCH ×4 (04:06→22:57)
[2019-03-14] MEDS: AMPICILLIN 1 GM/NS (PMX) 50 ML IV SCH ×3 (04:38→12:43)
[2019-03-14] MEDS ORDERED: OXYTOCIN 30 UNITS/LR 500 ML IV SCH (05:00)
--- NOTE | 2019-03-15 00:27 | PREAC ---
Date/Time of Note Date/Time of Note DATE: 03/15/19 TIME: 00:26 Anesthesia Eval and Record Evaluation Time Pre-Procedure Interview DATE: 03/15/19 TIME: 00:26 Age 23 Sex female NPO: 8 hrs Preoperative diagnosis LABOR PAIN Planned procedure LABOR EPIDURAL Past Medical History Past Medical History: Includes : : (1), Para: (0), Gestational age: (37 3/7 WKS), PIH Surgery & Anesthesia Issues No known issue Meds Anticoagulation: No Beta Sylvia within 24 hr: No Reason Beta Sylvia not given: Pt. not on B-Sylvia Active Scripts Vit No.124/Iron/FA ( Vitamin Tablet) 1 Each Tablet, 1 EACH PO DAILY, #30 TAB Prov:PATRIZIA ALVARENGA 08/22/18 Reported Medications Calcium Carbonate (Oysco-500) 500 Mg Tablet, 500 MG PO, TAB 03/13/19 Current Medications Butorphanol Tartrate (Stadol) 2 mg Q2H PRN IV .PAIN SCALE 6-10 Last administered on 03/14/19at 08:52; Admin Dose 2 MG; Start 03/13/19 at 23:00 Lidocaine (Xylocaine 1% (Mpf)) 30 ml ONCE PRN INJ .EPISIOTOMY; Start 03/13/19 at 23:00 Oxytocin/Lactated Ringer's 500 ml @ 500 mls/hr ONCE POST IV ; Start at 23:00 Oxytocin/Lactated Ringer's 500 ml @ 125 mls/hr POST IV ; Start 03/13/19 at 23:00 Ibuprofen (Motrin) 600 mg ONCE PRN PO .PAIN 1-5; Start 03/13/19 at 23:00 Lactated Ringer's 1,000 ml @ 2,000 mls/hr Q30M PRN IV .ANESTHESIA Last administered on 03/15/19at 00:23; Admin Dose 2,000 MLS/HR; Start 03/13/19 at 22:31 Oxytocin/Lactated Ringer's 500 ml @ 0 mls/hr ONCE PRN IV .VAGINAL BLEEDING; Start 03/13/19 at 23:00 Methylergonovine Maleate (Methergine) 0.2 mg ONCE PRN IM .VAGINAL BLEEDING; Start 03/13/19 at 23:00 Carboprost Tromethamine (Hemabate) 250 mcg ONCE PRN IM .VAGINAL BLEEDING; Start 03/13/19 at 23:00 Misoprostol (Cytotec) 1,000 mcg ONCE PRN LA .VAGINAL BLEEDING; Start 03/13/19 at 23:00 Lactated Ringer's 1,000 ml @ 125 mls/hr Q8H IV Last administered on 03/14/19at 22:57; Admin Dose 125 MLS/HR; Start 03/13/19 at 23:00 Oxytocin/Lactated Ringer's 500 ml @ 0 mls/hr FOR AUGMENTATION IV Last administered on 03/14/19at 05:12; Admin Dose 1 MLS/HR; Start 03/14/19 at 05:00 Meds reviewed: Yes Allergies Coded Allergies: No Known Allergy (Unverified , 03/13/19) Allergies Reviewed: Yes Labs/Studies Labs Reviewed: Reviewed by anesthesiologist Result Diagram: 03/13/19 1430 03/13/19 2327 test: N/A Pre-procedure Exam Airway: Adequate mouth opening, Adequate thyromental dist Mallampati: Mallampati II Teeth: Normal Lung: Normal Heart: Normal ASA Physical Status ASA physical status: 2 Emergency: None Planned Anesthetic Neuraxial: Epidural Planned Pain Management Epidural Pre-operative Attestations Prior to commencing anesthesia and surgery, the patient was re-evaluated, there was verification of: *The patient's identity *The results of appropriate recent lab work and preoperative vital signs *The above evaluation not changing prior to induction *Anesthetic plan, risk benefits, alternative and complications discussed with patient/family; questions answered; patient/family understands, accepts and wishes to proceed. Galileo Quintero M.D. Mar 15, 2019 00:27
[2019-03-15] MEDS ORDERED: FENTAnyl 2MCG/ML-ROPIV 0.2% 100 ML ONE (00:28)
--- NOTE | 2019-03-15 00:53 | PAC ---
Date/Time of Note Date/Time of Note DATE: 03/15/19 TIME: 00:53 Post-Anesthesia Notes Post-Anesthesia Note Last documented vital signs HR 77B RR 14 BP 117/75 T 98 Activity: WNL Respiratory function: WNL Cardiovascular function: WNL Mental status: Baseline Pain reasonably controlled: Yes Hydration appropriate: Yes Nausea/Vomiting absent: Yes Galileo Quintero M.D. Mar 15, 2019 00:53
[2019-03-15] MEDS ORDERED: ONDANSETRON 4 MG INJ IV PRN (01:00)
[2019-03-15] MEDS ORDERED: NALOXONE (0.4 MG/ML) INJ IV PRN (01:00)
[2019-03-15] MEDS ORDERED: FENTAnyl 2MCG/ML-ROPIV 0.2% 100 ML BAG EPI SCH (01:00)
[2019-03-15] MEDS ORDERED: TRIMETHOBENZAMIDE 100 MG/ML VIAL IM PRN (01:00)
[2019-03-15] MEDS ORDERED: DIPHENHYDRAMINE 50 MG INJ IV PRN (01:00)
[2019-03-15] MEDS: LACTATED RINGER'S 1,000 ML IV SCH (05:19)
--- NOTE | 2019-03-15 14:34 | LDN ---
Date/Time of Note Date/Time of Note DATE: 03/15/19 TIME: 14:31 Delivery Summary Weeks of Gestation 37+ weeks Placenta Delivered: Spontaneously Meconium: none Episiotomy: No Laceration repair: Second degree laceration repaired with 3-0 Vicryl and 3-0 chromic Anesthesia type: Epidural Estimated blood loss: 300 Sponge & Needle done & correct: Yes All needle counts correct: Yes Any foreign bodies felt in the: No Delivery Information Sex Infant Sex: male Apgars 1 Minute: 9 5 Minute: 9 Suctioning Nose & mouth suctioned at sangeeta: No Delee suction performed: No Umbilical Cord Umbilical cord with: 3 Vessels Cord presentations: no nuchal cord Cord Blood was obtained: Yes Mother & Baby Disposition Disposition Mom & Baby to Maternity; Good: Yes CAS KIM MD Mar 15, 2019 14:34
[2019-03-15 18:25] VITALS: BP 126/80; PULSE 85; RESP 17
[2019-03-15] MEDS: LACTATED RINGER'S 1,000 ML IV* SCH (18:40)
[2019-03-15] MEDS ORDERED: WITCH HAZEL/GLYCERIN PAD PR PRN (19:00)
[2019-03-15] MEDS ORDERED: ACETAMINOPHEN 325 MG TAB PO PRN (19:00)
[2019-03-15] MEDS ORDERED: MISOPROSTOL 200 MCG TAB PR PRN (19:00)
[2019-03-15] MEDS ORDERED: HYDROCODONE/APAP (5/325) TAB PO PRN (19:00)
[2019-03-15] MEDS ORDERED: BENZOCAINE 20% 56 ML SPRAY TOP PRN (19:00)
[2019-03-15] MEDS ORDERED: METHYLERGONOVINE 0.2 MG INJ IM PRN (19:00)
[2019-03-15] MEDS ORDERED: DIBUCAINE 1% 30 GM OINT TOP PRN (19:00)
[2019-03-15] MEDS ORDERED: OXYTOCIN 30 UNITS/LR 500 ML IV PRN (19:00)
[2019-03-15] MEDS ORDERED: CARBOPROST 250 MCG INJ IM PRN (19:00)
[2019-03-15 20:00] VITALS: BP 133/75; PULSE 85; RESP 19
[2019-03-15] MEDS: IBUPROFEN 600 MG TAB PO SCH (23:58)
[2019-03-15] MEDS: SENNA/DOCUSATE NA (8.6MG/50MG) TAB PO SCH (23:58)
[2019-03-16] MEDS: LACTATED RINGER'S 1,000 ML IV* SCH (02:40)
[2019-03-16 03:45] VITALS: BP 124/79; PULSE 74; RESP 19
[2019-03-16] MEDS: IBUPROFEN 600 MG TAB PO SCH ×4 (05:55→23:56)
[2019-03-16 08:00] VITALS: BP 117/70; PULSE 67; RESP 18
[2019-03-16] MEDS: SENNA/DOCUSATE NA (8.6MG/50MG) TAB PO SCH ×2 (08:48→21:47)
[2019-03-16 16:00] VITALS: BP 125/70; PULSE 74; RESP 18
--- NOTE | 2019-03-16 19:14 | QN ---
Documentation Comment No complaint Afebrile VSS Fundus firm Lochia scant PPD #1 stable Continue present care. CAS KIM MD Mar 16, 2019 19:14
[2019-03-16 20:00] VITALS: BP 142/63; PULSE 74; RESP 18
[2019-03-17 04:00] VITALS: BP 127/74; PULSE 65; RESP 18
[2019-03-17] MEDS: IBUPROFEN 600 MG TAB PO SCH ×2 (05:40→12:30)
[2019-03-17 08:00] VITALS: BP 125/60; PULSE 64; RESP 20
[2019-03-17] MEDS ORDERED: DIPHTH/TET/ACEL PERTUSS (ADULT) 0.5 ML VIAL IM* ONE (09:00)
[2019-03-17] MEDS: SENNA/DOCUSATE NA (8.6MG/50MG) TAB PO SCH (09:00)
--- NOTE | 2019-03-17 13:34 | DS ---
Date/Time of Note Date/Time of Note DATE: 03/17/19 TIME: 13:33 Obstetrical Discharge Record Final Diagnosis Final Diagnosis: Term delivered Other Final Diagnosis oligohydramnios gestational hypertension Vaginal Delivery Obstetrical Delivery: Spontaneous Complications Induction: Yes Condition on Discharge Physical Assessment Voiding: Yes Bowel Movement: Yes Breast: Soft, non-tender, Filling Fundus: Firm Calf Tenderness: No Patient Condition: Stable CAS KIM MD Mar 17, 2019 13:34
--- NOTE | 2019-03-18 17:11 | DELSUM ---
Delivery Summary A-C Datetime Report Generated by CPN: 03/18/2019 17:11 DELIVERY PERSONNEL Hydrodynamicist: Harris, Michelle MATERNAL INFORMATION Delivery Anesthesia: Epidural Medications in Delivery: PITOCIN Delivery QBL (ml): 300 Placenta Cultured: No Maternal Complications: None LABOR SUMMARY EDC: 04/02/2019 00:00 No. Babies in Womb: 1 Attempted: No Labor Anesthesia: Epidural LABOR INFORMATION Reason for Induction: Gest. HTN/PreEclam/Eclamp; Oligohydramnios Onset of Labor: 03/14/2019 05:12 Group B Beta Strep: Negative Antibiotics # of Doses: 0 Steroids Given: None Reason Steroids Not Administered: Not Applicable MEMBRANES Membranes Rupture Method: Spontaneous Rupture of Membranes: 03/15/2019 00:30 Length of Rupture (hr): 13.55 Amniotic Fluid Color: Bloody Amniotic Fluid Amount: Small Amniotic Fluid Odor: Normal STAGES OF LABOR Stage 3 hr: 0 Stage 3 min: 3 Total Time in Labor hr: 32 Total Time in Labor min: 54 VAGINAL DELIVERY Episiotomy: None Laceration Extension: Second Degree Laceration Type: Perineal Initial Vag Sponge Count: 10 Final Vag Sponge Count: 10 Initial Vag Sharps Count: 3 Final Vag Sharps Count: 3 Sponge Count Correct: Yes Sharps Count Correct: Yes BABY A INFORMATION Delivery Date/Time: 03/15/2019 14:03 Method of Delivery: Vaginal Born in Route : No : N/A Forceps: N/A Vacuum Extraction: N/A Shoulder Dystocia : No SHOULDER DYSTOCIA BABY A Infant Delivery Date/Time: 03/15/2019 14:03 PRESENTATION/POSITION BABY A Presentation: Cephalic Cephalic Presentation: Vertex Vertex Position: Left Occipital Anterior Breech Presentation: N/A PLACENTA INFORMATION BABY A Placenta Delivery Time : 03/15/2019 14:06 Placenta Method of Delivery: Spontaneous Placenta Status: Delivered SCORES BABY A Heart Rate 1 min: >100 bpm Resp Effort 1 min: Good Cry Reflex Irritability 1 min: Cough/Sneeze/Pulls Away Muscle Tone 1 min: Active Motion Color 1 min: Body Ester, Extremit Blue Resuscitation Effort 1 min: Tactile Stimulation SCORE 1 MIN: 9 Heart Rate 5 min: >100 bpm Resp Effort 5 min: Good Cry Reflex Irritability 5 min: Cough/Sneeze/Pulls Away Muscle Tone 5 min: Active Motion Color 5 min: Body Ester, Extremit Blue Resuscitation Effort 5 min: Tactile Stimulation SCORE 5 MIN: 9 INFANT INFORMATION BABY A Gestational Age at Delivery: 37.3 Gestational Status: Early Term- 37- 38.6 Weeks Outcome : Liveborn, with signs of life Condition : Stable Sex: Male IDENTIFICATION/MEDS BABY A ID Band Number: [id number] ID Band Location: Right Leg; Left Arm Sensor Applied: Yes Sensor Number: [id number] Sensor Location : Cord Clamp Vitamin K Given : Aquamephyton 1 mg IM Erythromycin Given: Given Both Eyes WEIGHT/LENGTH BABY A Infant Birthweight (gm): 3040 Infant Weight (lb): 6 Weight (oz): 11 Length (in): 18.50 Infant Length (cm): 46.99 CORD INFORMATION BABY A No. Cord Vessels: 3 Nuchal Cord : N/A Nuchal Cord- Other: 0 True Knot: 0 Cord Blood Taken: Yes Banking/Donate Info: NO Suction: Mouth; Nose ASSESSMENT BABY A Complications: Multiple Variable Decels Physical Findings at Delivery: Within Normal Limits Infant Respirations: Appears Normal Communication Engineer/ALS Called : No Transferred To: Remains with Mother
== END 2019-03-17 17:10 | disposition home or self-care (01) | DRG 807 ==
LOC: OBT 12:20 → L-D 12:21 → OBT 12:53 → L-D 12:53 → PP1 03-15 18:15
PROVIDERS: ADMIT Obstetrics & Gynecology; ATTEND Obstetrics & Gynecology
PROC: 10E0XZZ Delivery of Products of Conception, External Approach (ICD-10-PCS; principal; 2019-03-15)
PROC: 0HQ9XZZ Repair Perineum Skin, External Approach (ICD-10-PCS; 2019-03-15)
DX: O41.03X0 Oligohydramnios, third trimester, not applicable or unspecified (principal); O70.1 Second degree perineal laceration during delivery; O13.4 Gestational [pregnancy-induced] hypertension without significant proteinuria, complicating childbirth; Z3A.37 37 weeks gestation of pregnancy; Z37.0 Single live birth
CPT/HCPCS: 62322; 76818; 80053; 81001; 84560; 85025; 85610; 85730; 86592; 86850; 86900; 86901; 87340; 88307; 99464; G0463; J0290; J0595; J2590; J3010; J7120